=== PATIENT | male | born 1945 | race Caucasian/White ===

== ENCOUNTER 2020-08-06 12:24 | Emergency (ER) | payer MEDICARE, BC ==
[~2020-08-06] VITALS: Ht 172.7 cm; Wt 79.5 kg
[~2020-08-06 12:24] MED LIST: AMLO2.5T2 PO; ARIP5TAB60 PO; ASPI81TA52 PO; ATOR20TA PO; CITA40TA11 PO; FLO0.4C PO; INSU200I4 SQ; KEP500T PO; LISI1TAB29 PO; MAGN250T11 PO; MULT-25 PO; OMEP40CA13 PO; TRAZ-251 PO; thiamine tablet PO
[2020-08-06 13:03] LABS: BASOPHILS # (AUTO) 0.1 X10'3 (0-0.2); EOSINOPHILS # (AUTO) 0.2 X10'3 (0-0.9); HEMATOCRIT 46.1 % (42.0-52.0); HEMOGLOBIN 15.1 g/dl (14.0-17.9); LYMPHOCYTES # (AUTO) 0.8 X10'3 (1.1-4.8); MEAN CORPUSCULAR HEMOGLOBIN 26.1 PG (27.0-31.0); MEAN CORPUSCULAR HGB CONC 32.8 g/dL (33.0-36.5); MEAN CORPUSCULAR VOLUME 79.4 FL (78-98); MEAN PLATELET VOLUME 9.5 FL (7.4-10.4); MONOCYTES # (AUTO) 0.6 X10'3 (0-0.9); MONOCYTES % (AUTO) 10.5 % (2-12); NEUTROPHILS % (AUTO) 71.5 % (42-75); PLATELET COUNT 192 X10'3 (140-440); RED CELL DISTRIBUTION WIDTH 19.7 % (11.5-14.5); WHITE BLOOD COUNT 5.6 X10'3 (4.5-11.0)
[2020-08-06 13:27] LABS: ALANINE AMINOTRANSFERASE 18 U/L (12-78); ALBUMIN 4.2 G/DL (3.4-5.0); ALBUMIN/GLOBULIN RATIO 1.2 (1.1-1.5); ALKALINE PHOSPHATASE 85 IU/L (46-116); ANION GAP 14 (8-16); ASPARTATE AMINO TRANSFERASE 15 U/L (10-37); BILIRUBIN,TOTAL 0.9 MG/DL (0.1-1.0); BLOOD UREA NITROGEN 14 MG/DL (7-18); BUN/CREATININE RATIO 9.1 (5.4-32.0); CALCIUM 9.3 MG/DL (8.5-10.1); CHLORIDE 100 MMOL/L (99-107); CREATININE 1.54 MG/DL (0.60-1.10); ETHANOL < 0.010 GM/DL (0.0-0.010); GLUCOSE 129 MG/DL (70-104); SODIUM 142 MMOL/L (135-145); TOTAL CARBON DIOXIDE 27.6 MMOL/L (24-32); TOTAL PROTEIN 7.8 G/DL (6.4-8.2); eGFR 45 ML/MIN
[2020-08-06 13:28] LABS: CLARITY,URINE CLEAR (Clear); COLOR,URINE YELLOW (Yellow); GLUCOSE, URINE NEGATIVE (Neg); KETONES,URINE NEGATIVE (Neg); LEUKOCYTE ESTERASE ,URINE NEGATIVE (Neg); NITRITES, URINE NEGATIVE (Neg); OCCULT BLOOD,URINE NEGATIVE (Neg); PROTEIN,URINE 30 mg/dl (Neg)
[2020-08-06 13:29] LABS: POTASSIUM 2.7 MMOL/L (3.5-5.1)
[2020-08-06 13:35] LABS: UA COLLECTION TYPE VOIDED
[2020-08-06] MEDS: LORazepam 1 MG tablet PO PRN (13:35)
[2020-08-06 13:36] LABS: BACTERIA,URINE FEW /HPF (Neg); MUCUS STRANDS MODERATE /LPF (Neg); SQUAMOUS EPITHELIAL CELL,UR NONE SEEN /LPF (FEW); WBC,URINE 0-4 /HPF (0-4)
[2020-08-06 13:37] LABS: FINE GRANULAR CAST 0-3 /LPF (NEGATIVE); RBC,URINE 0-2 /HPF (0-2); RENAL CELLS, URINE FEW /HPF
[2020-08-06] MEDS ORDERED: potassium Cl 20 mEq SR tablet PO STA (13:46)
[2020-08-06 14:10] LABS: URINE AMPHETAMINE SCREEN NEGATIVE (Neg); URINE BARBITUATE SCREEN NEGATIVE (Neg); URINE BENZODIAZEPINES SCREEN NEGATIVE (Neg); URINE CANNABINOID SCREEN POSITIVE (Neg); URINE COCAINE SCREEN NEGATIVE (Neg); URINE METHADONE SCREEN NEGATIVE (Neg); URINE OPIATE SCREEN NEGATIVE (Neg); URINE PHENCYCLIDINE SCREEN NEGATIVE (Neg)
--- NOTE | 2020-08-06 15:40 | NUR ---
PACKET FAXED TO [facility]
[2020-08-06 18:22] LABS: ACETAMINOPHEN < 2.0 UG/ML (10-30)
--- NOTE | 2020-08-06 19:11 | NUR ---
One to one with the patient to update him on the plan of care for harper. Lab is at the bedside to repeat his K level. He stated that he has been having suicidal thoughts for quite some time. He stated that he has been feeling depressed. He also stated, "I can't even enjoy anything. I can't enjoy life" He denies auditory hallucinatons.
[2020-08-06] MEDS ORDERED: potassium chloride 10mEq ER tablet PO ONE (19:50)
[2020-08-06] MEDS ORDERED: LISI20TA28 PO (19:59)
[2020-08-06] MEDS ORDERED: FERR-29 PO (20:00)
[2020-08-06] MEDS: tamsulosin 0.4mg capsule PO SCH (20:36)
[2020-08-06] MEDS: amLODIPine 5mg tablet PO SCH (20:37)
[2020-08-06] MEDS: atorvastatin 20mg tablet PO SCH (20:38)
[2020-08-06] MEDS: citalopram 20mg tablet PO SCH (20:38)
[2020-08-06] MEDS: insulin glargine (Lantus) pen - multi-dose SQ SCH (20:40)
--- NOTE | 2020-08-06 22:37 | NUR ---
The patient's HS accucheck was only 101 despite eating dinner. Discussed with pc technician and Dominique walton for harper. The patient has not been checking his BS at home.
--- NOTE | 2020-08-06 23:01 | NUR ---
The patient appears to be sleeping
--- NOTE | 2020-08-07 00:42 | NUR ---
The patient appears to be sleeping
--- NOTE | 2020-08-07 01:47 | NUR ---
The patient up to use the bathroom
--- NOTE | 2020-08-07 03:50 | NUR ---
The patient appears to be sleeping
--- NOTE | 2020-08-07 06:35 | NUR ---
pt is asleep, eyes closed, regular breathing observed, no needs at this time
--- NOTE | 2020-08-07 07:00 | NUR ---
pt up and ambulating to the bathroom, no needs at this time
--- NOTE | 2020-08-07 07:46 | NUR ---
pt is asleep, no needs at this time
[2020-08-07] MEDS: multivitamins, therapeutics tablet PO SCH (08:09)
[2020-08-07] MEDS: aspirin 81mg tablet.DR PO SCH (08:09)
[2020-08-07] MEDS: ferrous sulfate 325mg tablet PO SCH (08:09)
[2020-08-07] MEDS: pantoprazole 40mg Tablet.DR PO SCH ×2 (08:09→20:24)
[2020-08-07] MEDS: lisinopril 20mg tablet PO SCH (08:10)
--- NOTE | 2020-08-07 08:39 | NUR ---
pt taak medications and ate breakfast, he is calm, no needs at this time
--- NOTE | 2020-08-07 09:20 | NUR ---
pt accepting of blood draw, calm, no needs at this time
--- NOTE | 2020-08-07 09:41 | NUR ---
pt is back to sleep, regular breathing observed
--- NOTE | 2020-08-07 10:42 | NUR ---
pt is sleeping, regular breathing present, no needs at this time
[2020-08-07] MEDS ORDERED: bisacodyl 5mg tablet.DR PO PRN (10:55)
--- NOTE | 2020-08-07 11:44 | NUR ---
pt is supine in bed, no needs at this time
--- NOTE | 2020-08-07 13:17 | NUR ---
pt is eating his lunch, no needs at this time
--- NOTE | 2020-08-07 13:26 | NUR ---
pt was up at the nurses station, wanting to know status, he is saying that he is a burden to his daughter, has no purpose, no hellen, doesn't think he can be fixed
[2020-08-07] MEDS: LORazepam 1 MG tablet PO PRN (13:32)
[2020-08-07] MEDS ORDERED: LORazepam 2 mg/ml vial IV ONE (13:50)
[2020-08-07] MEDS ORDERED: phenobarbital inj 260 MG in normal saline 100ml IV soln 98 ML IV ONE (13:50)
[2020-08-07] MEDS ORDERED: normal saline 1000ML IV soln IVB ONE (14:00)
--- NOTE | 2020-08-07 14:45 | NUR ---
called and spoke to Stephanie, pt daughter, updated her on pt, let her know that he is back in the main ED and that he had a possible seizure
--- NOTE | 2020-08-07 17:09 | NUR ---
Patient up to bathroom at this time. Gait steady, no signs of distress noted. Ambulated independently back to bed safely.
--- NOTE | 2020-08-07 20:09 | NUR ---
pt to room, assumed care. pt AAO4. food tray given. water given. pt calm and coorpertive.
[2020-08-07] MEDS: atorvastatin 20mg tablet PO SCH (20:24)
[2020-08-07] MEDS: citalopram 20mg tablet PO SCH (20:24)
[2020-08-07] MEDS: amLODIPine 5mg tablet PO SCH (20:24)
[2020-08-07] MEDS: tamsulosin 0.4mg capsule PO SCH (20:24)
--- NOTE | 2020-08-07 20:28 | NUR ---
pt did not eat any dinner. states, its too cold. offered turkey sandwich and pt refused.
[2020-08-07] MEDS: insulin glargine (Lantus) pen - multi-dose SQ SCH (20:29)
--- NOTE | 2020-08-07 21:20 | NUR ---
pt resting in bed comfortably. denies needs.
--- NOTE | 2020-08-07 22:53 | NUR ---
pt appears asleep in bed, even chest rise and fall.
--- NOTE | 2020-08-08 03:17 | NUR ---
report given to RN, care transferred
--- NOTE | 2020-08-08 03:19 | NUR ---
ASSUMED CARE OF PT FROM ARIA SMITH. PT SLEEPING IN BED WITH EVEN UNLABORED RESPIRATIONS. PT IN NO SIGN OF DISTRESS AT THIS TIME. WILL CONTINUE TO REASSESS.
--- NOTE | 2020-08-08 04:27 | NUR ---
PT STOOD TO URINATE AND NOW IS SAFELY BACK IN BED RESTING ON RIGHT SIDE WITH EVEN UNLABORED RESPIRATIONS AND NO SIGNS OF DISTRESS.
--- NOTE | 2020-08-08 11:36 | NUR ---
pt brought from room 16 in the main ER to room 23 in overflow by tech with no incident
[2020-08-08 11:45] VITALS: BP_DIAS 67
[2020-08-08] MEDS: pantoprazole 40mg Tablet.DR PO SCH (11:48)
[2020-08-08] MEDS: aspirin 81mg tablet.DR PO SCH (11:48)
[2020-08-08 11:49] VITALS: BP_SYST 130
[2020-08-08] MEDS: ferrous sulfate 325mg tablet PO SCH (11:49)
[2020-08-08] MEDS: multivitamins, therapeutics tablet PO SCH (11:49)
[2020-08-08] MEDS: lisinopril 20mg tablet PO SCH (11:49)
[2020-08-08] MEDS: LORazepam 1 MG tablet PO PRN (11:50)
[2020-08-09] MEDS ORDERED: LISI1TAB29 PO (10:43)
== END 2020-08-08 13:05 | disposition home or self-care (01) ==
LOC: ER 12:25
DX: F32.9 Major depressive disorder, single episode, unspecified (principal); Z20.822 Contact with and (suspected) exposure to COVID-19
CPT/HCPCS: 36415; 80053; 80305; 80320; 80329; 81001; 82948; 84132; 84443; 85025; 87635; 93005; 96365; 96375; 99285; C9803; J2060; J2560; J7030; J1815

== ENCOUNTER 2022-06-24 18:46 | Inpatient (IN) | payer MEDICARE, BC ==
[~2022-06-24] VITALS: Ht 162.6 cm; Wt 82.8 kg
[~2022-06-24 18:46] MED LIST changes: -AMLO2.5T2 PO; +AMLO5TAB PO; -ARIP5TAB60 PO; +ATI1T PO; -CITA40TA11 PO; +FERR-29 PO; -KEP500T PO; -LISI1TAB29 PO; +LISI1TAB53 PO; -MAGN250T11 PO; -OMEP40CA13 PO; +OMEP40CA21 PO; +QUET50TA24 PO; +SERT-434 PO; -TRAZ-251 PO; -thiamine tablet PO
[2022-06-24 19:11] LABS: BASOPHILS % (AUTO) 0.2 % (0-1); EOSINOPHILS % (AUTO) 0 % (0-6); HEMATOCRIT 47.4 % (42.0-52.0); HEMOGLOBIN 16.1 g/dl (14.0-17.9); LYMPHOCYTES # (AUTO) 0.4 X10'3 (1.1-4.8); LYMPHOCYTES % (AUTO) 2.4 % (21-51); MEAN CORPUSCULAR HEMOGLOBIN 28.5 PG (27.0-31.0); MEAN PLATELET VOLUME 8.9 FL (7.4-10.4); MONOCYTES # (AUTO) 0.9 X10'3 (0-0.9); MONOCYTES % (AUTO) 5.7 % (2-12); NEUTROPHILS # (AUTO) 13.9 X10'3 (1.8-7.7); NEUTROPHILS % (AUTO) 91.7 % (42-75); PLATELET COUNT 182 X10'3 (140-440); RED BLOOD COUNT 5.64 X10'6 (4.70-6.10); RED CELL DISTRIBUTION WIDTH 13.5 % (11.5-14.5); WHITE BLOOD COUNT 15.2 X10'3 (4.5-11.0)
[2022-06-24 19:25] LABS: ALANINE AMINOTRANSFERASE 22 U/L (12-78); ALBUMIN 4.6 G/DL (3.4-5.0); ALBUMIN/GLOBULIN RATIO 1.2 (1.1-1.5); ALKALINE PHOSPHATASE 82 IU/L (46-116); ANION GAP 23 (8-16); ASPARTATE AMINO TRANSFERASE 22 U/L (10-37); BILIRUBIN,TOTAL 0.8 MG/DL (0.1-1.0); BLOOD UREA NITROGEN 18 MG/DL (7-18); BUN/CREATININE RATIO 12.3 (10.0-20.0); CALCIUM 9.5 MG/DL (8.5-10.1); CHLORIDE 100 MMOL/L (99-107); CREATININE 1.46 MG/DL (0.60-1.10); GLUCOSE 200 MG/DL (70-104); SODIUM 142 MMOL/L (135-145); TOTAL CARBON DIOXIDE 19.5 MMOL/L (24-32); TOTAL PROTEIN 8.3 G/DL (6.4-8.2); eGFR 47 ML/MIN
[2022-06-24 19:27] LABS: POTASSIUM 2.8 MMOL/L (3.5-5.1)
[2022-06-24] MEDS: magnesium 2GM in 50ml NS 50 ML IV SCH ×2 (19:35→20:35)
[2022-06-24] MEDS: potassium Cl 40MEQ/1/2NS 520ml 520 ML IV SCH (20:00)
--- NOTE | 2022-06-24 20:24 | NUR ---
ATTEMPT EKG, PT COMBATIVE WITH STAFF. UNABLE TO GET EKG. WILL ATTEMPT AGAIN AT LATER TIME. MADE AWARE.
[2022-06-24] MEDS ORDERED: LORazepam 2 mg/ml vial IV ONE (21:00)
[2022-06-24] MEDS ORDERED: CefTRIAXone 2gm/D5W 50ml BAG 50 ML IV ONE (21:05)
[2022-06-24] MEDS ORDERED: normal saline 1000ML IV soln IVB ONE ×2 (21:40→23:35)
[2022-06-24] MEDS ORDERED: magnesium Cl slow-release 64mg tablet PO PRN (22:10)
[2022-06-24] MEDS: potassium Cl 20mEq in NS 1,000 ML IV SCH (22:10)
[2022-06-24] MEDS ORDERED: ondansetron/PF 4mg/2ml inj IV PRN (22:10)
[2022-06-24] MEDS ORDERED: potassium Cl 40MEQ/1/2NS 520ml 520 ML IV PRN (22:10)
[2022-06-24] MEDS ORDERED: potassium Cl 20 mEq SR tablet PO PRN ×2 (22:10)
[2022-06-24] MEDS ORDERED: magnesium 2GM in 50ml NS 50 ML IV PRN (22:10)
[2022-06-24] MEDS ORDERED: acetaminophen 325mg tablet PO PRN (22:10)
[2022-06-24] MEDS ORDERED: magnesium 4gm in 100ml NS 100 ML IV PRN (22:10)
[2022-06-24] MEDS ORDERED: magnesium hydroxide 30ml (MOM) UD suspension PO PRN (22:10)
[2022-06-24] MEDS ORDERED: mag hydrox/Alum hydrox/simeth 30ml oral suspension PO PRN (22:10)
[2022-06-24] MEDS ORDERED: dextrose 50%-water 50ml dispensing syringe IV PRN ×2 (22:15)
[2022-06-24] MEDS ORDERED: MESSAGE TO PHARMACY PO ONE (22:15)
[2022-06-24] MEDS ORDERED: glucagon, human recombinant 1mg kit SUBCUT PRN (22:15)
[2022-06-24] MEDS ORDERED: DEXTROSE 15 GM of carb/4 tabs (each vial/BOTTLE has 4 tablets) PO PRN ×2 (22:15)
[2022-06-24] MEDS ORDERED: insulin Lispro (HumaLOG) vial - multi-dose SQ SCH (22:15)
--- NOTE | 2022-06-24 22:40 | NUR ---
ATTEMPT EKG AGAIN, EVEN WITH PT IN SOFT RESTRAINTS UNABLE TO OBTAIN EKG, PER PT MOVING. WILL ATTEMPT AGAIN.
[2022-06-24] MEDS ORDERED: LORazepam 2 mg/ml vial IV PRN (23:00)
--- NOTE | 2022-06-24 23:19 | NUR ---
Patient resistant to care and combative. Pt grabbing at items within reach and staff. Pt is non verbal and resistant to verbal reorientation. Pt placed in soft non-behavioral restraints B/L wrists. MD notified. New orders for Ativan 1 mg Q4h prn as needed for agitation.
[2022-06-25] MEDS: potassium Cl 40MEQ/1/2NS 520ml 520 ML IV SCH
--- NOTE | 2022-06-25 | NUR ---
Pt resting comfortably. Soft restraints removed. Pt is calm when left alone.
[2022-06-25 01:31] LABS: CLARITY,URINE CLOUDY (Clear); COLOR,URINE YELLOW (Yellow); GLUCOSE, URINE NEGATIVE (Neg); KETONES,URINE 15 mg/dl (Neg); LEUKOCYTE ESTERASE ,URINE NEGATIVE (Neg); NITRITES, URINE NEGATIVE (Neg); OCCULT BLOOD,URINE MODERATE (Neg); PROTEIN,URINE NEGATIVE (Neg); UROBILINOGEN,URINE 0.2 E.U/dL (0.2-1.0)
[2022-06-25 01:44] LABS: UA COLLECTION TYPE STRAIGHT CATH
[2022-06-25 01:48] LABS: WBC,URINE 0-4 /HPF (0-4)
[2022-06-25 01:49] LABS: BACTERIA,URINE NONE SEEN /HPF (Neg); MUCUS STRANDS NONE SEEN /LPF (Neg); SQUAMOUS EPITHELIAL CELL,UR FEW /LPF (FEW)
[2022-06-25 01:50] LABS: AMORPHOUS URATES 2+; URIC ACID CRYSTALS 2+ /HPF (NEGATIVE)
[2022-06-25 03:52] LABS: BASOPHILS # (AUTO) 0.1 X10'3 (0-0.2); BASOPHILS % (AUTO) 0.4 % (0-1); EOSINOPHILS % (AUTO) 0 % (0-6); HEMATOCRIT 42.6 % (42.0-52.0); HEMOGLOBIN 14.5 g/dl (14.0-17.9); LYMPHOCYTES # (AUTO) 0.5 X10'3 (1.1-4.8); LYMPHOCYTES % (AUTO) 4.1 % (21-51); MEAN CORPUSCULAR HEMOGLOBIN 28.6 PG (27.0-31.0); MEAN CORPUSCULAR VOLUME 84.1 FL (78-98); MEAN PLATELET VOLUME 9.2 FL (7.4-10.4); MONOCYTES # (AUTO) 0.9 X10'3 (0-0.9); MONOCYTES % (AUTO) 7.1 % (2-12); NEUTROPHILS # (AUTO) 11.3 X10'3 (1.8-7.7); NEUTROPHILS % (AUTO) 88.4 % (42-75); PLATELET COUNT 168 X10'3 (140-440); RED BLOOD COUNT 5.06 X10'6 (4.70-6.10); RED CELL DISTRIBUTION WIDTH 13.7 % (11.5-14.5); WHITE BLOOD COUNT 12.8 X10'3 (4.5-11.0)
[2022-06-25 04:07] LABS: ALANINE AMINOTRANSFERASE 20 U/L (12-78); ALBUMIN/GLOBULIN RATIO 1.2 (1.1-1.5); ALKALINE PHOSPHATASE 69 IU/L (46-116); ANION GAP 12 (8-16); ASPARTATE AMINO TRANSFERASE 26 U/L (10-37); BILIRUBIN,TOTAL 0.6 MG/DL (0.1-1.0); BLOOD UREA NITROGEN 16 MG/DL (7-18); BUN/CREATININE RATIO 14.4 (10.0-20.0); CALCIUM 8.5 MG/DL (8.5-10.1); CHLORIDE 106 MMOL/L (99-107); CREATININE 1.11 MG/DL (0.60-1.10); GLUCOSE 178 MG/DL (70-104); MAGNESIUM 3.7 MG/DL (1.5-2.4); POTASSIUM 3.4 MMOL/L (3.5-5.1); SODIUM 142 MMOL/L (135-145); TOTAL PROTEIN 7.3 G/DL (6.4-8.2); eGFR 65 ML/MIN
--- NOTE | 2022-06-25 05:00 | NUR ---
Patient out of bed and confused. Pt reoriented, and followed directions to climb back into bed. Pt is improving, oriented to person, but still confused.
[2022-06-25] MEDS: K and/or MAG REPLACEMENT MC SCH ×2 (08:00→20:00)
[2022-06-25] MEDS: docusate sod 100mg capsule PO SCH ×2 (08:00→20:58)
[2022-06-25] MEDS: CefTRIAXone/D5W-Rocephin 1gm 50 ML IV SCH (08:18)
[2022-06-25] MEDS: heparin, porcine 5000 units/ml vial SQ SCH ×2 (08:20→20:58)
[2022-06-25] MEDS: potassium Cl 20mEq in NS 1,000 ML IV SCH ×3 (09:27→22:01)
[2022-06-25 10:17] LABS: HEMOGLOBIN A1C 6.6 % (4.5-6.2)
[2022-06-25 13:51] LABS: CHOL/HDL RATIO 2.3 (0.00-4.99); CHOLESTEROL 119 MG/DL (0-200); HDL CHOLESTEROL 51 MG/DL (35-60); LDL CHOLESTEROL 54 MG/DL (50-100); TRIGLYCERIDES 80 MG/DL (20-135)
--- NOTE | 2022-06-25 21:00 | NUR ---
PT. PLACED ON HOSPITAL BED FOR COMFORT WHILE AWAITING INPT. ROOM ASSIGNMENT
[2022-06-26 03:08] VITALS: BP 128/63
[2022-06-26 07:33] LABS: RED CELL DISTRIBUTION WIDTH 14.3 % (11.5-14.5)
[2022-06-26 07:35] LABS: BASOPHILS % (AUTO) 0.3 % (0-1); EOSINOPHILS % (AUTO) 0.3 % (0-6); HEMATOCRIT 37.1 % (42.0-52.0); HEMOGLOBIN 12.4 g/dl (14.0-17.9); LYMPHOCYTES # (AUTO) 0.7 X10'3 (1.1-4.8); LYMPHOCYTES % (AUTO) 9.4 % (21-51); MEAN CORPUSCULAR HEMOGLOBIN 28.3 PG (27.0-31.0); MEAN CORPUSCULAR HGB CONC 33.5 g/dL (33.0-36.5); MEAN CORPUSCULAR VOLUME 84.6 FL (78-98); MEAN PLATELET VOLUME 9.2 FL (7.4-10.4); MONOCYTES # (AUTO) 0.6 X10'3 (0-0.9); MONOCYTES % (AUTO) 8.6 % (2-12); NEUTROPHILS % (AUTO) 81.4 % (42-75); PLATELET COUNT 137 X10'3 (140-440); RED BLOOD COUNT 4.39 X10'6 (4.70-6.10); WHITE BLOOD COUNT 7.4 X10'3 (4.5-11.0)
[2022-06-26 07:40] VITALS: BP 115/81
[2022-06-26 07:46] LABS: ALANINE AMINOTRANSFERASE 19 U/L (12-78); ALBUMIN 3.3 G/DL (3.4-5.0); ALBUMIN/GLOBULIN RATIO 1.2 (1.1-1.5); ALKALINE PHOSPHATASE 55 IU/L (46-116); ANION GAP 8 (8-16); ASPARTATE AMINO TRANSFERASE 28 U/L (10-37); BILIRUBIN,TOTAL 0.7 MG/DL (0.1-1.0); BLOOD UREA NITROGEN 15 MG/DL (7-18); BUN/CREATININE RATIO 17.4 (10.0-20.0); CALCIUM 7.7 MG/DL (8.5-10.1); CHLORIDE 110 MMOL/L (99-107); CREATININE 0.86 MG/DL (0.60-1.10); GLUCOSE 167 MG/DL (70-104); MAGNESIUM 2.4 MG/DL (1.5-2.4); PHOSPHORUS 2.3 MG/DL (2.3-4.5); POTASSIUM 3.2 MMOL/L (3.5-5.1); SODIUM 144 MMOL/L (135-145); TOTAL CARBON DIOXIDE 26.3 MMOL/L (24-32); eGFR 87 ML/MIN
[2022-06-26] MEDS: CefTRIAXone/D5W-Rocephin 1gm 50 ML IV SCH (07:47)
[2022-06-26] MEDS: docusate sod 100mg capsule PO SCH ×2 (07:47→20:00)
[2022-06-26] MEDS: heparin, porcine 5000 units/ml vial SQ SCH ×2 (07:49→20:02)
[2022-06-26] MEDS: K and/or MAG REPLACEMENT MC SCH ×2 (08:13→20:00)
[2022-06-26] MEDS: potassium Cl 20mEq in NS 1,000 ML IV SCH ×2 (08:13→23:18)
[2022-06-26] MEDS ORDERED: AMLO5TAB PO (10:35)
[2022-06-26] MEDS ORDERED: CARB1DRO42 OP (10:35)
[2022-06-26] MEDS ORDERED: METF-900 PO (10:35)
[2022-06-26] MEDS ORDERED: LORA-269 PO (10:35)
[2022-06-26] MEDS ORDERED: QUET50TA PO (10:35)
[2022-06-26] MEDS ORDERED: ATOR20TA66 PO (10:35)
[2022-06-26] MEDS ORDERED: LISI1TAB53 PO (10:35)
[2022-06-26] MEDS ORDERED: FLO0.4C PO (10:35)
[2022-06-26] MEDS ORDERED: OMEP20CA15 PO (10:35)
[2022-06-26] MEDS ORDERED: SERT-433 PO (10:35)
[2022-06-26 11:00] VITALS: BP 138/72
[2022-06-26] MEDS ORDERED: PERFLUTREN PROTEIN-A MICROSPHR (Optison) 0.22 MG/ML 3ML VIAL IV ONE (11:50)
[2022-06-26 15:00] VITALS: BP 137/63
[2022-06-26] MEDS ORDERED: GADOTERATE MEGLUMINE 7.5 MMOL/15 ML VIAL IV ONE (15:39)
[2022-06-26] MEDS ORDERED: LORazepam 1 MG tablet PO PRN (17:00)
[2022-06-26] MEDS ORDERED: polyvinyl alcohol ophthalmic drops 15ml bottle EACHEYE PRN (17:00)
[2022-06-26] MEDS: vancomycin/NS 1 GM ADD-VANTAGE 250 ML IV SCH (17:30)
[2022-06-26] MEDS: sertraline 50mg tablet PO SCH (17:30)
[2022-06-26] MEDS: tamsulosin 0.4mg capsule PO SCH (17:30)
[2022-06-26 18:00] VITALS: BP 137/63
--- NOTE | 2022-06-26 18:38 | NUR ---
Problems reprioritized. Patient report given, questions answered & plan of care reviewed with Hallie RN, patient stable at transfer of care.
[2022-06-26] MEDS: QUEtiapine 25mg tablet PO SCH (20:00)
[2022-06-26 23:00] VITALS: BP 145/78
[2022-06-27 03:00] VITALS: BP 148/74
[2022-06-27] MEDS: vancomycin/NS 1 GM ADD-VANTAGE 250 ML IV SCH ×2 (04:53→17:00)
--- NOTE | 2022-06-27 06:20 | NUR ---
Patient in room PCU 3026. I have received report from ARIA Selby and had the opportunity to ask questions and assume patient care.
--- NOTE | 2022-06-27 06:36 | NUR ---
Problems reprioritized. Patient report given, questions answered & plan of care reviewed with Gladis KNAPP and Mechelle KNAPP.
[2022-06-27 06:45] LABS: BASOPHILS # (AUTO) 0.1 X10'3 (0-0.2); EOSINOPHILS # (AUTO) 0.1 X10'3 (0-0.9); EOSINOPHILS % (AUTO) 1.8 % (0-6); HEMATOCRIT 37.1 % (42.0-52.0); HEMOGLOBIN 12.5 g/dl (14.0-17.9); LYMPHOCYTES # (AUTO) 0.5 X10'3 (1.1-4.8); LYMPHOCYTES % (AUTO) 10.4 % (21-51); MEAN CORPUSCULAR HEMOGLOBIN 28.7 PG (27.0-31.0); MEAN CORPUSCULAR HGB CONC 33.7 g/dL (33.0-36.5); MEAN CORPUSCULAR VOLUME 85.3 FL (78-98); MEAN PLATELET VOLUME 9.1 FL (7.4-10.4); MONOCYTES # (AUTO) 0.6 X10'3 (0-0.9); MONOCYTES % (AUTO) 12.1 % (2-12); NEUTROPHILS # (AUTO) 3.4 X10'3 (1.8-7.7); NEUTROPHILS % (AUTO) 73.7 % (42-75); PLATELET COUNT 137 X10'3 (140-440); RED BLOOD COUNT 4.35 X10'6 (4.70-6.10); RED CELL DISTRIBUTION WIDTH 13.9 % (11.5-14.5); WHITE BLOOD COUNT 4.6 X10'3 (4.5-11.0)
[2022-06-27 07:00] VITALS: BP 148/74
[2022-06-27 07:08] LABS: ALANINE AMINOTRANSFERASE 28 U/L (12-78); ALBUMIN 3.2 G/DL (3.4-5.0); ALBUMIN/GLOBULIN RATIO 1.1 (1.1-1.5); ALKALINE PHOSPHATASE 51 IU/L (46-116); ANION GAP 6 (8-16); ASPARTATE AMINO TRANSFERASE 28 U/L (10-37); BILIRUBIN,TOTAL 0.6 MG/DL (0.1-1.0); BLOOD UREA NITROGEN 9 MG/DL (7-18); BUN/CREATININE RATIO 12.7 (10.0-20.0); CALCIUM 7.9 MG/DL (8.5-10.1); CHLORIDE 113 MMOL/L (99-107); CREATININE 0.71 MG/DL (0.60-1.10); GLUCOSE 132 MG/DL (70-104); PHOSPHORUS 1.9 MG/DL (2.3-4.5); POTASSIUM 3.6 MMOL/L (3.5-5.1); SODIUM 146 MMOL/L (135-145); TOTAL CARBON DIOXIDE 27.3 MMOL/L (24-32); eGFR > 90 ML/MIN
[2022-06-27] MEDS: docusate sod 100mg capsule PO SCH ×2 (08:00→20:37)
[2022-06-27] MEDS: lisinopril 20mg tablet PO SCH (08:00)
[2022-06-27] MEDS: K and/or MAG REPLACEMENT MC SCH ×2 (08:00→20:00)
[2022-06-27] MEDS: pantoprazole 40mg Tablet.DR PO SCH (08:00)
[2022-06-27] MEDS: HYDROchlorothiazide 25mg tablet PO SCH (08:53)
[2022-06-27] MEDS: sertraline 50mg tablet PO SCH (08:53)
[2022-06-27] MEDS: atorvastatin 20mg tablet PO SCH (08:53)
[2022-06-27] MEDS: tamsulosin 0.4mg capsule PO SCH (08:54)
[2022-06-27] MEDS: amLODIPine 5mg tablet PO SCH (08:55)
[2022-06-27] MEDS: heparin, porcine 5000 units/ml vial SQ SCH ×2 (08:56→20:39)
[2022-06-27] MEDS: CefTRIAXone/D5W-Rocephin 1gm 50 ML IV SCH (08:58)
[2022-06-27 11:57] VITALS: BP 139/71
[2022-06-27] MEDS: potassium Cl 20mEq in NS 1,000 ML IV SCH ×2 (12:45→20:10)
[2022-06-27 15:51] VITALS: BP 144/70
--- NOTE | 2022-06-27 18:15 | NUR ---
Problems reprioritized. Patient report given, questions answered & plan of care reviewed with Bal KNAPP. Pt stable at shift change.
[2022-06-27] MEDS: QUEtiapine 25mg tablet PO SCH (20:38)
[2022-06-27 23:00] VITALS: BP 103/71
[2022-06-28 03:00] VITALS: BP 151/78
[2022-06-28] MEDS ORDERED: VANCOMYCIN LEVEL IV ONE (04:30)
[2022-06-28 04:56] LABS: BASOPHILS # (AUTO) 0.1 X10'3 (0-0.2); EOSINOPHILS # (AUTO) 0.1 X10'3 (0-0.9); MEAN PLATELET VOLUME 8.9 FL (7.4-10.4); MONOCYTES # (AUTO) 0.5 X10'3 (0-0.9); PLATELET COUNT 148 X10'3 (140-440)
[2022-06-28] MEDS: vancomycin/NS 1 GM ADD-VANTAGE 250 ML IV SCH (04:56)
[2022-06-28 04:57] LABS: BASOPHILS % (AUTO) 2.6 % (0-1); EOSINOPHILS % (AUTO) 2.6 % (0-6); HEMATOCRIT 44.6 % (42.0-52.0); LYMPHOCYTES # (AUTO) 0.9 X10'3 (1.1-4.8); LYMPHOCYTES % (AUTO) 17.6 % (21-51); MEAN CORPUSCULAR HEMOGLOBIN 28.6 PG (27.0-31.0); MEAN CORPUSCULAR HGB CONC 33.6 g/dL (33.0-36.5); MEAN CORPUSCULAR VOLUME 85.2 FL (78-98); MONOCYTES % (AUTO) 9.7 % (2-12); NEUTROPHILS # (AUTO) 3.6 X10'3 (1.8-7.7); NEUTROPHILS % (AUTO) 67.5 % (42-75); RED BLOOD COUNT 5.23 X10'6 (4.70-6.10); RED CELL DISTRIBUTION WIDTH 14.3 % (11.5-14.5); WHITE BLOOD COUNT 5.3 X10'3 (4.5-11.0)
[2022-06-28 05:06] LABS: ALANINE AMINOTRANSFERASE 46 U/L (12-78); ALBUMIN 3.8 G/DL (3.4-5.0); ALBUMIN/GLOBULIN RATIO 1.2 (1.1-1.5); ALKALINE PHOSPHATASE 66 IU/L (46-116); ANION GAP 9 (8-16); ASPARTATE AMINO TRANSFERASE 27 U/L (10-37); BILIRUBIN,TOTAL 0.6 MG/DL (0.1-1.0); BLOOD UREA NITROGEN 10 MG/DL (7-18); BUN/CREATININE RATIO 12.5 (10.0-20.0); CHLORIDE 108 MMOL/L (99-107); GLUCOSE 135 MG/DL (70-104); MAGNESIUM 2.1 MG/DL (1.5-2.4); PHOSPHORUS 3.3 MG/DL (2.3-4.5); POTASSIUM 3.4 MMOL/L (3.5-5.1); SODIUM 144 MMOL/L (135-145); TOTAL CARBON DIOXIDE 27.5 MMOL/L (24-32); TOTAL PROTEIN 7.1 G/DL (6.4-8.2); VANCOMYCIN,TROUGH 8.7 UG/ML (6.0-14.0); eGFR > 90 ML/MIN
--- NOTE | 2022-06-28 06:15 | NUR ---
Patient in room PCU 3026. I have received report from Bal KNAPP and had the opportunity to ask questions and assume patient care.
--- NOTE | 2022-06-28 06:36 | NUR ---
Problems reprioritized. Patient report given, questions answered & plan of care reviewed with Mechelle KNAPP and Gladis KNAPP.
[2022-06-28 07:00] VITALS: BP 155/72
[2022-06-28] MEDS: heparin, porcine 5000 units/ml vial SQ SCH ×2 (08:00→20:06)
[2022-06-28] MEDS: K and/or MAG REPLACEMENT MC SCH ×2 (08:00→20:00)
[2022-06-28] MEDS: atorvastatin 20mg tablet PO SCH (08:17)
[2022-06-28] MEDS: pantoprazole 40mg Tablet.DR PO SCH (08:17)
[2022-06-28] MEDS: lisinopril 20mg tablet PO SCH (08:18)
[2022-06-28] MEDS: tamsulosin 0.4mg capsule PO SCH (08:18)
[2022-06-28] MEDS: HYDROchlorothiazide 25mg tablet PO SCH (08:19)
[2022-06-28] MEDS: amLODIPine 5mg tablet PO SCH (08:19)
[2022-06-28] MEDS: docusate sod 100mg capsule PO SCH ×2 (08:19→20:05)
[2022-06-28] MEDS: sertraline 50mg tablet PO SCH (08:19)
[2022-06-28] MEDS: CefTRIAXone/D5W-Rocephin 1gm 50 ML IV SCH (08:20)
[2022-06-28] MEDS: potassium Cl 20mEq in NS 1,000 ML IV SCH ×2 (08:34→20:06)
[2022-06-28 12:00] VITALS: BP 170/86
--- NOTE | 2022-06-28 12:26 | NUR ---
Initial: Pt admit for gravely disabled with acute encephalopathy, metabolic acidosis (resolved), and leukocytosis. Pt currently on a CHO controlled diet and eating well, documented with 100% PO intake of all meals with the exception of ~50% PO intake of first and most recent meal, overall averaging 86% PO intake since admit meeting estimated nutrient needs. No documented BM since admit, pt receiving routine bowel care with additional PRN bowel care available. D/w dietary to send power pudding with next meal to assist with bowel regularity. Will continue to follow and monitor need for further nutrition intervention. Recommendations: 1) Liberalize to regular diet if BG levels controlled, A1c 6.6% 2) Routine bowel care; utilize PRN bowel care 3) Scaled weight this admit; subsequent weekly scaled weights Addendum: 06/28/22 at [address] Amended: Links added.
[2022-06-28 12:37] LABS: GLUCOSE,CSF 97 MG/DL (40-75); TOTAL PROTEIN,CSF 96 MG/DL (30-60)
[2022-06-28 12:41] LABS: CSF SUPERNATANT COLOR COLORLESS
[2022-06-28 12:43] LABS: APPEARANCE,CSF CLOUDY; CSF RBC 5475 /CU MM (0); CSF VOLUME 9.5 ML; CSF WBC CT 4 /CU MM (0-5); TUBE# COUNTED 3
[2022-06-28] MEDS: VANCOmycin 1250MG/NS 250ml Bag 250 ML IV SCH (17:42)
[2022-06-28 18:00] VITALS: BP 149/72
--- NOTE | 2022-06-28 18:20 | NUR ---
Patient in room PCU 3026. I have received report from Gladis KNAPP and had the opportunity to ask questions and assume patient care.
--- NOTE | 2022-06-28 18:46 | NUR ---
Problems reprioritized. Patient report given, questions answered & plan of care reviewed with Amanda MORALES, patient stable at transfer of care..
[2022-06-28] MEDS: QUEtiapine 25mg tablet PO SCH (22:11)
[2022-06-29 02:00] VITALS: BP 94/56
[2022-06-29] MEDS: potassium Cl 20mEq in NS 1,000 ML IV SCH ×2 (02:10→05:16)
[2022-06-29] MEDS: VANCOmycin 1250MG/NS 250ml Bag 250 ML IV SCH (05:31)
[2022-06-29 06:00] VITALS: BP 125/74
--- NOTE | 2022-06-29 06:26 | NUR ---
Problems reprioritized. Patient report given, questions answered & plan of care reviewed with Dora KNAPP.
[2022-06-29] MEDS: CefTRIAXone/D5W-Rocephin 1gm 50 ML IV SCH (07:22)
[2022-06-29] MEDS: heparin, porcine 5000 units/ml vial SQ SCH (07:23)
[2022-06-29] MEDS: pantoprazole 40mg Tablet.DR PO SCH (07:23)
[2022-06-29] MEDS: amLODIPine 5mg tablet PO SCH (07:24)
[2022-06-29] MEDS: docusate sod 100mg capsule PO SCH (07:24)
[2022-06-29] MEDS: atorvastatin 20mg tablet PO SCH (07:25)
[2022-06-29] MEDS: HYDROchlorothiazide 25mg tablet PO SCH (07:25)
[2022-06-29] MEDS: sertraline 50mg tablet PO SCH (07:26)
[2022-06-29] MEDS: tamsulosin 0.4mg capsule PO SCH (07:26)
[2022-06-29] MEDS: lisinopril 20mg tablet PO SCH (07:27)
[2022-06-29 07:43] LABS: BASOPHILS # (AUTO) 0.1 X10'3 (0-0.2); BASOPHILS % (AUTO) 1.5 % (0-1); EOSINOPHILS # (AUTO) 0.1 X10'3 (0-0.9); EOSINOPHILS % (AUTO) 2.5 % (0-6); HEMATOCRIT 42.4 % (42.0-52.0); HEMOGLOBIN 14.2 g/dl (14.0-17.9); LYMPHOCYTES # (AUTO) 0.6 X10'3 (1.1-4.8); LYMPHOCYTES % (AUTO) 13.3 % (21-51); MEAN CORPUSCULAR HEMOGLOBIN 28.5 PG (27.0-31.0); MEAN CORPUSCULAR HGB CONC 33.6 g/dL (33.0-36.5); MEAN CORPUSCULAR VOLUME 84.9 FL (78-98); MEAN PLATELET VOLUME 8.8 FL (7.4-10.4); MONOCYTES # (AUTO) 0.5 X10'3 (0-0.9); MONOCYTES % (AUTO) 11.1 % (2-12); NEUTROPHILS # (AUTO) 3.4 X10'3 (1.8-7.7); NEUTROPHILS % (AUTO) 71.6 % (42-75); PLATELET COUNT 153 X10'3 (140-440); RED BLOOD COUNT 4.99 X10'6 (4.70-6.10); RED CELL DISTRIBUTION WIDTH 14.1 % (11.5-14.5); WHITE BLOOD COUNT 4.7 X10'3 (4.5-11.0)
[2022-06-29] MEDS: K and/or MAG REPLACEMENT MC SCH (08:00)
[2022-06-29 08:21] LABS: ALANINE AMINOTRANSFERASE 38 U/L (12-78); ALBUMIN 3.4 G/DL (3.4-5.0); ALBUMIN/GLOBULIN RATIO 1.1 (1.1-1.5); ALKALINE PHOSPHATASE 59 IU/L (46-116); ANION GAP 9 (8-16); ASPARTATE AMINO TRANSFERASE 19 U/L (10-37); BILIRUBIN,TOTAL 0.6 MG/DL (0.1-1.0); BLOOD UREA NITROGEN 11 MG/DL (7-18); BUN/CREATININE RATIO 13.9 (10.0-20.0); CALCIUM 8.4 MG/DL (8.5-10.1); CHLORIDE 109 MMOL/L (99-107); CREATININE 0.79 MG/DL (0.60-1.10); GLUCOSE 136 MG/DL (70-104); PHOSPHORUS 3.4 MG/DL (2.3-4.5); POTASSIUM 3.6 MMOL/L (3.5-5.1); SODIUM 144 MMOL/L (135-145); TOTAL CARBON DIOXIDE 26.1 MMOL/L (24-32); TOTAL PROTEIN 6.4 G/DL (6.4-8.2); eGFR > 90 ML/MIN
[2022-06-29 10:00] VITALS: BP 133/69
[2022-06-29] MEDS ORDERED: CIPR-202 PO (10:42)
--- NOTE | 2022-06-29 12:31 | NUR ---
Patient discharged in stable condition to home with family. iv removed tip intact no complications. Pt insisted on throwing away pants and socks that were soaked in urine. family and nurse witnessed pt throw away pants and pair of socks. Pt and family educated on discharge instructions/follow up.
--- NOTE | 2022-06-29 18:15 | NUR ---
i have reviewed student rn physical assessmement and agree with documented assessment.
[2022-06-30] MEDS ORDERED: VANCOMYCIN LEVEL IV ONE (04:30)
== END 2022-06-29 12:26 | disposition home or self-care (01) | DRG 70 ==
LOC: ER 18:46 → ED HOLD 22:12 → EDBEDREQSVC 22:52 → EDBEDREQ 22:52 → PCU 3S 06-26 02:30
PROVIDERS: ADMIT Internal Medicine; ATTEND Family Medicine
PROC: 4A00X4Z Measurement of Central Nervous Electrical Activity, External Approach (ICD-10-PCS; 2022-06-26)
PROC: 009U3ZZ Drainage of Spinal Canal, Percutaneous Approach (ICD-10-PCS; principal; 2022-06-28)
PROC: B01B1ZZ Fluoroscopy of Spinal Cord using Low Osmolar Contrast (ICD-10-PCS; 2022-06-28)
DX: G93.41 Metabolic encephalopathy (principal); N17.0 Acute kidney failure with tubular necrosis; E87.20 Acidosis, unspecified; R65.10 Systemic inflammatory response syndrome (SIRS) of non-infectious origin without acute organ dysfunction; Z20.822 Contact with and (suspected) exposure to COVID-19; F43.10 Post-traumatic stress disorder, unspecified; K21.9 Gastro-esophageal reflux disease without esophagitis; R62.7 Adult failure to thrive; F12.90 Cannabis use, unspecified, uncomplicated; Z60.2 Problems related to living alone; F41.9 Anxiety disorder, unspecified; R50.9 Fever, unspecified; D72.829 Elevated white blood cell count, unspecified; N40.0 Benign prostatic hyperplasia without lower urinary tract symptoms; F32.A Depression, unspecified; E11.9 Type 2 diabetes mellitus without complications; E78.00 Pure hypercholesterolemia, unspecified; E87.6 Hypokalemia; I10 Essential (primary) hypertension; Z68.31 Body mass index [BMI] 31.0-31.9, adult; Z91.018 Allergy to other foods; Z79.899 Other long term (current) drug therapy; Z79.82 Long term (current) use of aspirin; Z79.4 Long term (current) use of insulin
CPT/HCPCS: 36415; 62328; 70450; 70544; 70553; 71045; 71250; 74176; 77003; 80053; 80061; 80202; 81001; 82945; 82948; 83036; 83605; 83735; 84100; 84145; 84157; 84443; 85025; 87015; 87040; 87070; 87077; 87186; 87502; 87503; 87811; 89051; 93306; 93880; 95816; 96365; 96366; 96368; 96375; 97116; 97161; 97530; 99285; A4620; A6258; A6449; A9575; G0378; J0696; J1644; J1815; J2060; J3370; J3475; J3480; J7030; J7040

== ENCOUNTER 2024-03-21 12:37 | Emergency (ER) | payer BC, MEDICARE ==
[~2024-03-21] VITALS: Ht 170.2 cm; Wt 75.2 kg
[~2024-03-21 12:37] MED LIST changes: -ASPI81TA52 PO; -ATI1T PO; -ATOR20TA PO; +ATOR20TA66 PO; +CARB1DRO42 OP; -FERR-29 PO; -INSU200I4 SQ; +LORA-269 PO; +METF-900 PO; -MULT-25 PO; +OMEP20CA15 PO; -OMEP40CA21 PO; +QUET50TA PO; -QUET50TA24 PO; +SERT-433 PO; -SERT-434 PO
[2024-03-21 13:03] LABS: BILIRUBIN,URINE MODERATE (Neg); CLARITY,URINE CLOUDY (Clear); COLOR,URINE BROWN (Yellow); GLUCOSE, URINE NEGATIVE (Neg); KETONES,URINE 15 mg/dl (Neg); LEUKOCYTE ESTERASE ,URINE NEGATIVE (Neg); NITRITES, URINE NEGATIVE (Neg); OCCULT BLOOD,URINE LARGE (Neg); PROTEIN,URINE 30 mg/dl (Neg)
[2024-03-21 13:06] LABS: UA COLLECTION TYPE CLN CATCH MIDSTREAM
[2024-03-21 13:11] LABS: BACTERIA,URINE NONE SEEN /HPF (Neg); MUCUS STRANDS NONE SEEN /LPF (Neg); RBC,URINE TNTC /HPF (0-2); SQUAMOUS EPITHELIAL CELL,UR NONE SEEN /LPF (FEW); WBC,URINE 0-4 /HPF (0-4)
[2024-03-21 16:20] LABS: BASOPHILS % (AUTO) 0.2 % (0-1); EOSINOPHILS # (AUTO) 0.2 X10'3 (0-0.9); EOSINOPHILS % (AUTO) 1.8 % (0-6); HEMATOCRIT 43.9 % (42.0-52.0); HEMOGLOBIN 15.1 g/dl (14.0-17.9); LYMPHOCYTES # (AUTO) 0.9 X10'3 (1.1-4.8); LYMPHOCYTES % (AUTO) 9.9 % (21-51); MEAN CORPUSCULAR HEMOGLOBIN 28.9 PG (27.0-31.0); MEAN CORPUSCULAR HGB CONC 34.4 g/dL (33.0-36.5); MONOCYTES # (AUTO) 0.6 X10'3 (0-0.9); MONOCYTES % (AUTO) 6.9 % (2-12); NEUTROPHILS # (AUTO) 7.5 X10'3 (1.8-7.7); NEUTROPHILS % (AUTO) 81.2 % (42-75); PLATELET COUNT 168 X10'3 (140-440); RED BLOOD COUNT 5.23 X10'6 (4.70-6.10); RED CELL DISTRIBUTION WIDTH 15.1 % (11.5-14.5); WHITE BLOOD COUNT 9.2 X10'3 (4.5-11.0)
[2024-03-21 16:26] LABS: ANION GAP 13 (8-16); BLOOD UREA NITROGEN 24 MG/DL (7-18); BUN/CREATININE RATIO 22.2 (10.0-20.0); CALCIUM 9.1 MG/DL (8.5-10.1); CHLORIDE 103 MMOL/L (99-107); CREATININE 1.08 MG/DL (0.60-1.10); GLUCOSE 126 MG/DL (70-104); POTASSIUM 3.4 MMOL/L (3.5-5.1); SODIUM 141 MMOL/L (135-145); TOTAL CARBON DIOXIDE 24.8 MMOL/L (24-32); eCRCL 54 ML/MIN; eGFR 66 ML/MIN
[2024-03-21 16:29] LABS: APTT 25 SECONDS (22-32); INR 1.1 INR; PROTHROMBIN TIME 11.4 SECONDS (9.0-12.0)
[2024-03-21] MEDS ORDERED: iohexol 300mg/ml 100ml inj. ONE (17:24)
[2024-03-21 18:35] VITALS: PULSE 71
[2024-03-21 18:36] VITALS: BP 132/67; RESP 16; TEMP 98.8; O2SAT 93
== END 2024-03-21 18:37 | disposition home or self-care (01) ==
LOC: ER 12:38
DX: N02.9 Recurrent and persistent hematuria with unspecified morphologic changes (principal); I10 Essential (primary) hypertension; E11.9 Type 2 diabetes mellitus without complications; F12.90 Cannabis use, unspecified, uncomplicated; F32.A Depression, unspecified; E78.00 Pure hypercholesterolemia, unspecified; Z91.011 Allergy to milk products; Z88.8 Allergy status to other drugs, medicaments and biological substances
CPT/HCPCS: 36415; 74177; 80048; 81001; 85025; 85610; 85730; 99285; Q9967

== ENCOUNTER 2024-04-01 11:54 | Emergency (ER) | payer BC ==
[~2024-04-01] VITALS: Ht 162.6 cm; Wt 77.3 kg
[2024-04-02 01:43] VITALS: BP 149/80; PULSE 83; RESP 15; TEMP 97.8; O2SAT 96
== END 2024-04-01 15:20 | disposition home or self-care (01) ==
LOC: ER 11:55
DX: F41.9 Anxiety disorder, unspecified (principal); H61.23 Impacted cerumen, bilateral; E78.00 Pure hypercholesterolemia, unspecified; I10 Essential (primary) hypertension; E11.9 Type 2 diabetes mellitus without complications; F12.90 Cannabis use, unspecified, uncomplicated; Z91.018 Allergy to other foods; Z88.8 Allergy status to other drugs, medicaments and biological substances; Z79.899 Other long term (current) drug therapy
CPT/HCPCS: 99281

== ENCOUNTER 2024-05-26 13:03 | Inpatient (IN) | payer OTHER, MEDICARE, BC ==
[~2024-05-26] VITALS: Ht 170.2 cm; Wt 75.0 kg
[2024-05-26] MEDS: OLANZapine **IM** 10 mg inj. IM ONE (13:13)
[2024-05-26] MEDS: diazepam inj 5 MG/ML inj. IM ONE (14:08)
[2024-05-26 14:54] LABS: BASOPHILS % (AUTO) 0.2 % (0-1); EOSINOPHILS % (AUTO) 0.1 % (0-6); HEMATOCRIT 47.7 % (42.0-52.0); HEMOGLOBIN 15.7 g/dl (14.0-17.9); LYMPHOCYTES # (AUTO) 0.4 X10'3 (1.1-4.8); LYMPHOCYTES % (AUTO) 3.5 % (21-51); MEAN CORPUSCULAR HEMOGLOBIN 28.4 PG (27.0-31.0); MEAN CORPUSCULAR HGB CONC 32.9 g/dL (33.0-36.5); MEAN CORPUSCULAR VOLUME 86.3 FL (78-98); MEAN PLATELET VOLUME 9.5 FL (7.4-10.4); MONOCYTES # (AUTO) 0.4 X10'3 (0-0.9); MONOCYTES % (AUTO) 3.1 % (2-12); NEUTROPHILS # (AUTO) 11.6 X10'3 (1.8-7.7); NEUTROPHILS % (AUTO) 93.1 % (42-75); PLATELET COUNT 154 X10'3 (140-440); RED BLOOD COUNT 5.53 X10'6 (4.70-6.10); RED CELL DISTRIBUTION WIDTH 15.2 % (11.5-14.5); WHITE BLOOD COUNT 12.5 X10'3 (4.5-11.0)
[2024-05-26 15:01] LABS: ALBUMIN 4.4 G/DL (3.4-5.0); ANION GAP 26 (8-16); BLOOD UREA NITROGEN 15 MG/DL (7-18); BUN/CREATININE RATIO 11.1 (10.0-20.0); CALCIUM 9.4 MG/DL (8.5-10.1); CHLORIDE 101 MMOL/L (99-107); CREATININE 1.35 MG/DL (0.60-1.10); GLUCOSE 167 MG/DL (70-104); SODIUM 145 MMOL/L (135-145); TOTAL CARBON DIOXIDE 18.4 MMOL/L (24-32); eCRCL 43 ML/MIN; eGFR 51 ML/MIN
[2024-05-26 15:10] LABS: POTASSIUM 2.8 MMOL/L (3.5-5.1)
[2024-05-26] MEDS: levetiracetamNACL 1500mg/100mL 100 ML IV ONE (15:59)
[2024-05-26] MEDS: ringers solution, lacted 1,000 ML IV ONE ×2 (16:00→18:51)
[2024-05-26] MEDS: potassium Cl 20mEq/100mL bag 100 ML IV ONE (16:01)
[2024-05-26 17:38] LABS: BILIRUBIN,URINE NEGATIVE (Neg); CLARITY,URINE CLEAR (Clear); COLOR,URINE YELLOW (Yellow); GLUCOSE, URINE NEGATIVE (Neg); KETONES,URINE 40 mg/dl (Neg); LEUKOCYTE ESTERASE ,URINE NEGATIVE (Neg); NITRITES, URINE NEGATIVE (Neg); OCCULT BLOOD,URINE MODERATE (Neg); PH,URINE 5.5 (4.8-8.0); PROTEIN,URINE TRACE mg/dl (Neg); UROBILINOGEN,URINE 0.2 E.U/dL (0.2-1.0)
[2024-05-26 17:40] LABS: UA COLLECTION TYPE CLN CATCH MIDSTREAM
[2024-05-26 17:44] LABS: BACTERIA,URINE FEW /HPF (Neg); MUCUS STRANDS NONE SEEN /LPF (Neg); SQUAMOUS EPITHELIAL CELL,UR NONE SEEN /LPF (FEW); URIC ACID CRYSTALS 3+ /HPF (NEGATIVE); WBC,URINE NONE SEEN /HPF (0-4)
[2024-05-26] MEDS ORDERED: magnesium hydroxide 30ml (MOM) UD suspension PO PRN (18:05)
[2024-05-26] MEDS ORDERED: mag hydrox/Alum hydrox/simeth 30ml oral suspension PO PRN (18:05)
[2024-05-26] MEDS ORDERED: morphine 2 MG/ML inj. syringe IV PRN (18:05)
[2024-05-26] MEDS ORDERED: magnesium Cl slow-release 64mg tablet PO PRN (18:05)
[2024-05-26] MEDS ORDERED: potassium Cl 40MEQ/1/2NS 520ml 520 ML IV PRN (18:05)
[2024-05-26] MEDS ORDERED: magnesium sulf-water 4G/100mL 100 ML IV PRN (18:05)
[2024-05-26] MEDS ORDERED: potassium Cl 20 mEq SR tablet PO PRN (18:05)
[2024-05-26] MEDS ORDERED: acetaminophen 325mg tablet PO PRN (18:05)
[2024-05-26] MEDS ORDERED: ondansetron/PF 4mg/2ml inj IV PRN (18:05)
[2024-05-26] MEDS ORDERED: magnesium sulf-water 2g/50mL 50 ML IV PRN (18:05)
[2024-05-26 18:37] LABS: URINE AMPHETAMINE SCREEN NEGATIVE (Neg); URINE BARBITUATE SCREEN NEGATIVE (Neg); URINE BENZODIAZEPINES SCREEN NEGATIVE (Neg); URINE CANNABINOID SCREEN POSITIVE (Neg); URINE COCAINE SCREEN NEGATIVE (Neg); URINE METHADONE SCREEN NEGATIVE (Neg); URINE OPIATE SCREEN NEGATIVE (Neg); URINE PHENCYCLIDINE SCREEN NEGATIVE (Neg)
[2024-05-26 19:08] LABS: APTT 22 SECONDS (22-32); INR 1.1 INR; PROTHROMBIN TIME 11.4 SECONDS (9.0-12.0)
[2024-05-26 19:10] LABS: ALANINE AMINOTRANSFERASE 17 U/L (12-78); ALBUMIN 3.6 G/DL (3.4-5.0); ALBUMIN/GLOBULIN RATIO 1.2 (1.1-1.5); ALKALINE PHOSPHATASE 56 IU/L (46-116); ANION GAP 6 (8-16); ASPARTATE AMINO TRANSFERASE 9 U/L (10-37); BILIRUBIN,TOTAL 0.5 MG/DL (0.1-1.0); BLOOD UREA NITROGEN 13 MG/DL (7-18); BUN/CREATININE RATIO 16.9 (10.0-20.0); CALCIUM 8.7 MG/DL (8.5-10.1); CHLORIDE 106 MMOL/L (99-107); CREATININE 0.77 MG/DL (0.60-1.10); GLUCOSE 83 MG/DL (70-104); POTASSIUM 3.6 MMOL/L (3.5-5.1); SODIUM 145 MMOL/L (135-145); TOTAL CARBON DIOXIDE 32.6 MMOL/L (24-32); TOTAL PROTEIN 6.5 G/DL (6.4-8.2); eCRCL 75 ML/MIN; eGFR > 90 ML/MIN
[2024-05-26 19:20] LABS: MAGNESIUM 1.9 MG/DL (1.5-2.4); PRO BRAIN NATRIURETIC PEPTIDE 281 PG/ML (0-450)
[2024-05-26] MEDS: K and/or MAG REPLACEMENT MC SCH (19:21)
[2024-05-26 19:22] LABS: ETHANOL < 10 MG/DL (<10)
[2024-05-26] MEDS: ringers solution, lacted 1,000 ML IV SCH (19:25)
[2024-05-26] MEDS: heparin, porcine 5000 units/ml vial SQ SCH (19:27)
[2024-05-26] MEDS: docusate sod 100mg capsule PO SCH (19:27)
[2024-05-26] MEDS: diphenhydrAMINE 50 mg/ml inj IV ONE (19:51)
[2024-05-26] MEDS: haloperidol lactate 5mg/ml inj IM ONE (19:52)
[2024-05-26] MEDS ORDERED: UNABLE TO OBTAIN (21:32)
[2024-05-26 22:10] VITALS: BP 123/73; PULSE 67; RESP 18; TEMP 98.4; O2SAT 97
[2024-05-26 23:00] VITALS: RESP 18; O2SAT 97
[2024-05-27] VITALS (8 sets, daily range): BP systolic 126–156; BP diastolic 52–75; PULSE 60–68; RESP 16–20; TEMP 97.3–98.9; O2SAT 96–98
[2024-05-27] MEDS: levetiracetam-NACL1000mg/100ml 100 ML IV SCH (03:19)
[2024-05-27 06:31] LABS: BASOPHILS % (AUTO) 0.3 % (0-1); EOSINOPHILS % (AUTO) 0.5 % (0-6); HEMATOCRIT 42.4 % (42.0-52.0); HEMOGLOBIN 14.3 g/dl (14.0-17.9); LYMPHOCYTES # (AUTO) 0.8 X10'3 (1.1-4.8); LYMPHOCYTES % (AUTO) 10.8 % (21-51); MEAN CORPUSCULAR HEMOGLOBIN 28.6 PG (27.0-31.0); MEAN CORPUSCULAR HGB CONC 33.7 g/dL (33.0-36.5); MEAN CORPUSCULAR VOLUME 84.8 FL (78-98); MEAN PLATELET VOLUME 9.2 FL (7.4-10.4); MONOCYTES # (AUTO) 0.7 X10'3 (0-0.9); MONOCYTES % (AUTO) 9.1 % (2-12); NEUTROPHILS # (AUTO) 5.9 X10'3 (1.8-7.7); NEUTROPHILS % (AUTO) 79.3 % (42-75); PLATELET COUNT 144 X10'3 (140-440); RED CELL DISTRIBUTION WIDTH 15.2 % (11.5-14.5); WHITE BLOOD COUNT 7.5 X10'3 (4.5-11.0)
[2024-05-27 06:49] LABS: INR 1.1 INR; PROTHROMBIN TIME 11.7 SECONDS (9.0-12.0)
[2024-05-27 06:54] LABS: APTT 26 SECONDS (22-32)
[2024-05-27 06:57] LABS: HEMOGLOBIN A1C 5.8 % (4.5-6.2)
[2024-05-27 07:29] LABS: ALANINE AMINOTRANSFERASE 17 U/L (12-78); ALBUMIN 3.5 G/DL (3.4-5.0); ALBUMIN/GLOBULIN RATIO 1.1 (1.1-1.5); ALKALINE PHOSPHATASE 55 IU/L (46-116); ANION GAP 10 (8-16); ASPARTATE AMINO TRANSFERASE 15 U/L (10-37); BILIRUBIN,TOTAL 0.7 MG/DL (0.1-1.0); BLOOD UREA NITROGEN 10 MG/DL (7-18); BUN/CREATININE RATIO 13.7 (10.0-20.0); CALCIUM 8.6 MG/DL (8.5-10.1); CHLORIDE 106 MMOL/L (99-107); CHOL/HDL RATIO 2.1 (0.00-4.99); CHOLESTEROL 106 MG/DL (0-200); CREATININE 0.73 MG/DL (0.60-1.10); GLUCOSE 91 MG/DL (70-104); HDL CHOLESTEROL 51 MG/DL (35-60); LDL CHOLESTEROL 39 MG/DL (50-100); MAGNESIUM 1.9 MG/DL (1.5-2.4); PHOSPHORUS 3.4 MG/DL (2.3-4.5); SODIUM 146 MMOL/L (135-145); THYROID STIMULATING HORMONE 0.75 ulU/ml (0.34-4.50); TOTAL CARBON DIOXIDE 29.6 MMOL/L (24-32); TOTAL PROTEIN 6.6 G/DL (6.4-8.2); TRIGLYCERIDES 72 MG/DL (20-135); eCRCL 79 ML/MIN; eGFR > 90 ML/MIN
[2024-05-27 07:42] LABS: POTASSIUM 2.8 MMOL/L (3.5-5.1)
[2024-05-27] MEDS: potassium Cl 20 mEq SR tablet PO PRN (07:57)
[2024-05-27] MEDS: VANCOMYCIN 1.75GM/WATER FOR INJ (PEG) 350 ML IVPB IV ONE (11:00)
[2024-05-27] MEDS ORDERED: CARBOXYMETHYLCELLULOSE SODIUM EACHEYE PRN (12:15)
[2024-05-27] MEDS ORDERED: LORazepam 0.5 MG tablet PO PRN (12:15)
[2024-05-27] MEDS: LACOSAMIDE 200mg/20ml inj. 100 MG in normal saline 100ml IV soln 100 ML IV SCH (15:00)
[2024-05-27] MEDS: QUEtiapine 25mg tablet PO SCH (20:46)
[2024-05-27] MEDS: vancomycin/NS 1 GM ADD-VANTAGE 250 ML IV SCH (23:47)
[2024-05-28] VITALS (8 sets, daily range): BP systolic 123–135; BP diastolic 66–87; PULSE 58–66; RESP 15–20; TEMP 97.2–98.2; O2SAT 96–98
[2024-05-28 06:44] LABS: BASOPHILS % (AUTO) 0.7 % (0-1); EOSINOPHILS # (AUTO) 0.2 X10'3 (0-0.9); EOSINOPHILS % (AUTO) 3.9 % (0-6); HEMATOCRIT 41.1 % (42.0-52.0); HEMOGLOBIN 13.7 g/dl (14.0-17.9); LYMPHOCYTES # (AUTO) 0.9 X10'3 (1.1-4.8); LYMPHOCYTES % (AUTO) 16.8 % (21-51); MEAN CORPUSCULAR HEMOGLOBIN 28.6 PG (27.0-31.0); MEAN CORPUSCULAR HGB CONC 33.3 g/dL (33.0-36.5); MEAN CORPUSCULAR VOLUME 85.9 FL (78-98); MEAN PLATELET VOLUME 9.2 FL (7.4-10.4); MONOCYTES # (AUTO) 0.5 X10'3 (0-0.9); MONOCYTES % (AUTO) 10.1 % (2-12); NEUTROPHILS # (AUTO) 3.7 X10'3 (1.8-7.7); NEUTROPHILS % (AUTO) 68.5 % (42-75); PLATELET COUNT 137 X10'3 (140-440); RED BLOOD COUNT 4.79 X10'6 (4.70-6.10); RED CELL DISTRIBUTION WIDTH 15.1 % (11.5-14.5); WHITE BLOOD COUNT 5.4 X10'3 (4.5-11.0)
[2024-05-28 06:54] LABS: APTT 26 SECONDS (22-32); INR 1.1 INR; PROTHROMBIN TIME 11.8 SECONDS (9.0-12.0)
[2024-05-28 06:57] LABS: ALANINE AMINOTRANSFERASE 18 U/L (12-78); ALBUMIN 3.3 G/DL (3.4-5.0); ALBUMIN/GLOBULIN RATIO 1.2 (1.1-1.5); ALKALINE PHOSPHATASE 49 IU/L (46-116); ANION GAP 6 (8-16); ASPARTATE AMINO TRANSFERASE 14 U/L (10-37); BILIRUBIN,TOTAL 0.6 MG/DL (0.1-1.0); BLOOD UREA NITROGEN 9 MG/DL (7-18); BUN/CREATININE RATIO 13.4 (10.0-20.0); CALCIUM 8.3 MG/DL (8.5-10.1); CHLORIDE 111 MMOL/L (99-107); CREATININE 0.67 MG/DL (0.60-1.10); GLUCOSE 116 MG/DL (70-104); MAGNESIUM 1.7 MG/DL (1.5-2.4); PHOSPHORUS 3.2 MG/DL (2.3-4.5); POTASSIUM 3.5 MMOL/L (3.5-5.1); SODIUM 147 MMOL/L (135-145); TOTAL CARBON DIOXIDE 30.4 MMOL/L (24-32); TOTAL PROTEIN 6.1 G/DL (6.4-8.2); eCRCL 86 ML/MIN; eGFR > 90 ML/MIN
[2024-05-28] MEDS: pantoprazole 40mg Tablet.DR PO SCH (07:48)
[2024-05-28] MEDS: tamsulosin 0.4mg capsule PO SCH (07:48)
[2024-05-28] MEDS: lisinopril 20mg tablet PO SCH (07:49)
[2024-05-28] MEDS: amLODIPine 5mg tablet PO SCH (07:49)
[2024-05-28] MEDS: atorvastatin 20mg tablet PO SCH (07:49)
[2024-05-28] MEDS: HYDROchlorothiazide 25mg tablet PO SCH (07:50)
[2024-05-28] MEDS: sertraline 50mg tablet PO SCH (07:50)
[2024-05-28] MEDS: ringers solution, lacted 1,000 ML IV SCH (08:30)
[2024-05-28] MEDS: aspirin 81mg, enteric-coated 1 TAB TABLET.DR PO SCH (13:16)
[2024-05-28] MEDS ORDERED: GADOTERATE MEGLUMINE 7.5 MMOL/15 ML VIAL IV ONE (20:09)
[2024-05-28] MEDS: VANCOMYCIN LEVEL IV ONE (22:30)
[2024-05-29 02:00] VITALS: BP 110/66; PULSE 60; RESP 15; TEMP 97.3; O2SAT 97
[2024-05-29 07:00] VITALS: BP 166/80; PULSE 60; RESP 16; TEMP 97.2; O2SAT 98
[2024-05-29 07:42] LABS: EOSINOPHILS # (AUTO) 0.2 X10'3 (0-0.9); EOSINOPHILS % (AUTO) 4.4 % (0-6); HEMATOCRIT 43.3 % (42.0-52.0); HEMOGLOBIN 14.4 g/dl (14.0-17.9); LYMPHOCYTES # (AUTO) 0.7 X10'3 (1.1-4.8); LYMPHOCYTES % (AUTO) 14.9 % (21-51); MEAN CORPUSCULAR HEMOGLOBIN 28.4 PG (27.0-31.0); MEAN CORPUSCULAR HGB CONC 33.2 g/dL (33.0-36.5); MEAN CORPUSCULAR VOLUME 85.5 FL (78-98); MEAN PLATELET VOLUME 9.4 FL (7.4-10.4); MONOCYTES # (AUTO) 0.4 X10'3 (0-0.9); NEUTROPHILS # (AUTO) 3.5 X10'3 (1.8-7.7); NEUTROPHILS % (AUTO) 70.7 % (42-75); PLATELET COUNT 131 X10'3 (140-440); RED BLOOD COUNT 5.06 X10'6 (4.70-6.10); WHITE BLOOD COUNT 4.9 X10'3 (4.5-11.0)
[2024-05-29 07:55] LABS: APTT 25 SECONDS (22-32); INR 1.1 INR; PROTHROMBIN TIME 11.4 SECONDS (9.0-12.0)
[2024-05-29 08:00] VITALS: RESP 20; O2SAT 97
[2024-05-29 08:20] LABS: ALANINE AMINOTRANSFERASE 16 U/L (12-78); ALBUMIN 3.2 G/DL (3.4-5.0); ALKALINE PHOSPHATASE 55 IU/L (46-116); ANION GAP 9 (8-16); ASPARTATE AMINO TRANSFERASE 18 U/L (10-37); BILIRUBIN,TOTAL 0.6 MG/DL (0.1-1.0); BLOOD UREA NITROGEN 10 MG/DL (7-18); BUN/CREATININE RATIO 13.7 (10.0-20.0); CALCIUM 8.6 MG/DL (8.5-10.1); CHLORIDE 109 MMOL/L (99-107); CREATININE 0.73 MG/DL (0.60-1.10); GLUCOSE 131 MG/DL (70-104); MAGNESIUM 1.7 MG/DL (1.5-2.4); PHOSPHORUS 4.1 MG/DL (2.3-4.5); POTASSIUM 3.1 MMOL/L (3.5-5.1); SODIUM 145 MMOL/L (135-145); TOTAL CARBON DIOXIDE 27.1 MMOL/L (24-32); TOTAL PROTEIN 6.4 G/DL (6.4-8.2); eCRCL 79 ML/MIN; eGFR > 90 ML/MIN
[2024-05-29 11:00] VITALS: BP 152/70; PULSE 65; RESP 14; TEMP 97.3; O2SAT 97
[2024-05-29] MEDS ORDERED: LACO100T2 PO ×2 (11:02→12:20)
[2024-05-29] MEDS ORDERED: ASPI-1071 PO (11:02)
[2024-06-03] MEDS ORDERED: LACO100T2 PO (14:21)
== END 2024-05-29 13:07 | disposition home health service (06) | DRG 101 ==
LOC: ER 13:03 → ED HOLD 17:43 → PCU 3S 22:05
PROVIDERS: ADMIT Family Medicine; ATTEND Family Medicine
PROC: 4A00X4Z Measurement of Central Nervous Electrical Activity, External Approach (ICD-10-PCS; principal; 2024-05-27)
DX: G40.409 Other generalized epilepsy and epileptic syndromes, not intractable, without status epilepticus (principal); N17.9 Acute kidney failure, unspecified; E87.20 Acidosis, unspecified; E78.00 Pure hypercholesterolemia, unspecified; E11.9 Type 2 diabetes mellitus without complications; I10 Essential (primary) hypertension; F32.A Depression, unspecified; E87.6 Hypokalemia; Z91.014 Allergy to mammalian meats; Z91.018 Allergy to other foods; Z79.899 Other long term (current) drug therapy
CPT/HCPCS: 36415; 70450; 70553; 71045; 80048; 80053; 80061; 80202; 80305; 80320; 81001; 82948; 83036; 83605; 83735; 83880; 84100; 84145; 84443; 84484; 85025; 85610; 85730; 87040; 87077; 87081; 87186; 93005; 93308; 95816; 96361; 96365; 96372; 96375; 97116; 97161; 97530; 99291; A4615; A6590; C1758; C9254; G0378; J1200; J1630; J1644; J1953; J3360; J3370; J3372; J3480; J3490; J7030; J7120

== ENCOUNTER 2025-01-12 09:07 | Emergency (ER) | payer OTHER, MEDICARE, BC ==
[~2025-01-12] VITALS: Ht 167.6 cm; Wt 54.5 kg
[~2025-01-12 09:07] MED LIST changes: +ASPI-1071 PO; -FLO0.4C PO; +LACO100T2 PO; +TAMS-55 PO
--- NOTE | 2025-01-12 09:20 | Physician Documentation ---
History of Present Illness ~ Stated Complaint: 5150 Time Seen by MD: 09:12 Primary Medical Doctor: No local MD HPI 79-year-old has been in contact with [place] police Department multiple times over the last day. He was reported to be walking out in traffic asking ca r to kill him. Patient reports to have seen too much and wants to . When [employer] contacted the patient this morning at his house he stated that he wanted to denies so he can kill himself. Patient is uncooperative with the interview rambling speech and pressured. Speaking paranoid statements. Medication Reconciliation Allergies: Coded Allergies: Beef Containing Products (Unverified Allergy, Mild, 01/08/17) lactase (Verified Allergy, Mild, 01/08/17) lactose (Verified Allergy, Unknown, 09/30/19) Scheduled Amlodipine Besylate (Amlodipine Besylate), 1 TABLET PO DAILY, (Reported) Aspirin (Ecotrin*), 1 TAB PO DAILY Atorvastatin Calcium (Atorvastatin Calcium), 1 TAB PO DAILY, (Reported) Lacosamide (Vimpat), 1 TAB PO Q12H Lacosamide (Vimpat), 1 TAB PO Q12H Lisinopril/Hydrochlorothiazide (Lisinopril-Hctz 20-25 mg Tab), 1 TAB PO DAILY, (Reported) Metformin Hcl* (Metformin ER*), 1 TAB PO DAILY, (Reported) Omeprazole (Omeprazole), 2 CAP PO DAILY, (Reported) Quetiapine Fumarate (Seroquel), 1 TAB PO HS, (Reported) Sertraline HCl (Sertraline HCl), 1 TAB PO DAILY, (Reported) Tamsulosin Hcl* (Flomax*), 1 CAP PO DAILY, (Reported) Scheduled PRN Carboxymethylcellulose Sodium (Thera Tears), 1 DROP OP BID PRN for dry eyes, (R eported) Lorazepam (Ativan), 0.5 TAB PO DAILY PRN for anxiety, (Reported) Past Medical History Past Medical History: High Cholesterol, Hypertension, Diverticulitis, Diabetes, Depression Past Surgical History: no surgical history Patient History: Patient reports no known family medical history. Alcohol Use: Occasionally Drug Use: marijuana Lives with: Alone Lives In: Home Review of Systems All Other Systems at this time: Reviewed and Negative ROS As stated above in the HPI, otherwise all systems are reviewed and negative. Physical Exam Physical Exam General: uncooperative Respiratory: Lungs clear, no respiratory distress. Cardiovascular: Regular rate and rhythm, no murmurs. Gastrointestinal: Soft, nontender, nondistended. Bowels sounds present. . Neurologic: Oriented x4. Psychiatric: agitated, pressured speech, confused Skin: Normal color, warm and dry. No edema, no ecchymosis. Progress Progress Note After patient was not sedated he slept for several hours here in the ED. After he awoke he use the restroom and was showing dramatically different behavior. He is affable good historian and was interested in talking about his experience in the [place] war. Provided him with a meal tray which he appreciated Results/Orders Results/Orders Orders - PHILIPP MARIE NP Med Rec (01/12/25 09:21) Covid19 Binax Poc Result Entry (01/12/25 09:21) Substance Use Navigator (01/12/25 09:21) Behavioral Restraints (01/12/25 ) Regular Diet (01/12/25 Lunch) Close Observation Level (01/12/25 10:58) Completed Orders - PHILIPP MARIE NP Haloperidol Lact. (Haldol) (01/12/25 09:15) Diazepam Inj (Valium Inj) (01/12/25 09:15) Diphenhydramine Inj (Benadryl Inj.) (01/12/25 09:15) Cbc/Diff (01/12/25 09:21) Drug Screen, Urine (01/12/25 09:21) Ethanol (01/12/25 09:21) TSH (01/12/25 09:21) BMP (01/12/25 09:21) Ua With Microscopic (01/12/25 14:51) Medications Received in ER Medications (Trade) Dose Ordered Sig/Gemma Route PRN Reason Start Time Stop Time Status Last Admin Dose Admin (Haldol) 5 mg ONCE ONCE IM 01/12/25 09:15 01/12/25 09:16 DC 01/12/25 09:31 5 MG (Valium inj) 5 mg ONCE ONCE IV 01/12/25 09:15 01/12/25 09:17 DC 01/12/25 09:31 5 MG (Benadryl inj.) 25 mg ONCE ONCE IM 01/12/25 09:15 01/12/25 09:16 DC 01/12/25 09:31 25 MG Vital Signs 01/12/25 01/12/25 01/12/25 01/12/25 09:13 09:31 10:30 10:33 Pulse 63 Resp 24 22 20 16 B/P (MAP) 96/57 (70) Pulse Ox 96 O2 Flow Rate 0 0 01/12/25 10:50 Resp 14 Laboratory Tests Test 01/12/25 09:50 01/12/25 10:00 01/12/25 14:51 White Blood Count 9.4 Red Blood Count 5.63 Hemoglobin 16.2 Hematocrit 47.4 Mean Corpuscular Volume 84.3 Mean Corpuscular Hemoglobin 28.8 Mean Corpuscular Hemoglobin Concent 34.2 Red Cell Distribution Width 14.6 H Platelet Count 173 Mean Platelet Volume 10.0 Neutrophils (%) (Auto) 78.3 H Lymphocytes (%) (Auto) 11.4 L Monocytes (%) (Auto) 8.0 Eosinophils (%) (Auto) 1.8 Basophils (%) (Auto) 0.5 Neutrophils # (Auto) 7.4 Lymphocytes # (Auto) 1.1 Monocytes # (Auto) 0.8 Eosinophils # (Auto) 0.2 Basophils # (Auto) 0.0 CBC Comment Sodium Level 143 Potassium Level 3.4 L Chloride Level 102 Carbon Dioxide Level 21.3 L Anion Gap 20 H Blood Urea Nitrogen 16 Creatinine 1.23 H Estimated GFR/1.73 m2 57 BUN/Creatinine Ratio 13.0 Glucose Level 148 H Calcium Level 9.6 Albumin 4.4 Thyroid Stimulating Hormone (TSH) 1.21 Chemistry Comments Ethyl Alcohol Level < 10 SARS-CoV-2 Antigen (Rapid) Negative Urine Specimen Description Urinal Urine Color Maria Urine Clarity Clear Urine pH 6.0 Urine Specific [place] 1.020 Urine Protein Trace Urine Glucose (UA) Negative Urine Ketones 15 H Urine Occult Blood Negative Urine Nitrite Negative Urine Bilirubin Moderate Urine Urobilinogen 0.2 Urine Leukocyte Esterase Negative Urine RBC 0-2 Urine WBC 0-4 Urine Squamous Epithelial Cells Few Urine Transitional Epithelial Cells Few Urine Calcium Oxalate Crystals 1+ Urine Bacteria None seen Urine Mucus Few Volume Urine Centrifuged 10 ml Urine Comment Urine Opiates Screen Negative Urine Methadone Screen Negative Urine Fentanyl Screen Negative Urine Barbiturates Screen Negative Urine Phencyclidine Screen Negative Urine Amphetamines Screen Negative Urine Benzodiazepines Screen Positive Urine Cocaine Screen Negative Urine Cannabinoids Screen Positive Drug Screen Comment Medical Decision Making Additional information obtaine: N/A Findings Patient was sedated and now sleeping undisturbed. Labs are overall reassuring however there are some signs of mild to moderate dehydration which can be replenished orally. This time I am going to medically clear him for evaluation by [facility] Differential Dx:Considerations: Include: Alcohol abuse, Anxiety, Bipolar disorder, Conversion disorder, Depression, Encephaloathy, Homicidal, Panic disorder, Personality disorder, Schizophrenia, Substance abuse, Suicidal, Other Departure Disposition: 01 HOME / SELF CARE / HOMELESS Impression: Primary Impression: Depression Additional Impression: Schizoaffective disorder Additional Instructions: Transfer orders for [facility]: At this time there is no evidence of an emergent medical condition that would preclude (admission/transfer) to a psychiatric unit via [facility] protocol for further psychiatric, as well as medical evaluation and treatment. At this time I have no reason to believe that transfer via [facility] protocol would have serious medical compromise in the patient's health. Referrals: NO PRIMARY CARE PROVIDER (PCP) Signature Scribe Signature: [email or web address] Attestation: Scribed for Philipp Marie Public Services Assistant by Philipp Simon NP . 01/12/25 09:20 PHILIPP MARIE NP Jan 12, 2025 09:20
[2025-01-12] MEDS: diazepam inj 5 MG/ML inj. IV ONE (09:31)
[2025-01-12] MEDS: haloperidol lactate 5mg/ml inj IM ONE (09:31)
[2025-01-12 10:11] LABS: MEAN PLATELET VOLUME 10.0 FL (7.4-10.4); RED CELL DISTRIBUTION WIDTH 14.6 % (11.5-14.5)
[2025-01-12 10:27] LABS: CREATININE 1.23 MG/DL (0.60-1.10); TOTAL CARBON DIOXIDE 21.3 MMOL/L (24-32); eCRCL 38 ML/MIN; eGFR 57 ML/MIN
[2025-01-12 10:35] LABS: ETHANOL < 10 MG/DL (<10)
[2025-01-12 15:11] LABS: LEUKOCYTE ESTERASE ,URINE NEGATIVE (Neg); NITRITES, URINE NEGATIVE (Neg); OCCULT BLOOD,URINE NEGATIVE (Neg)
[2025-01-12 15:22] LABS: UA COLLECTION TYPE URINAL
[2025-01-12 15:23] LABS: CAL OXALATE CRYSTALS 1+ /HPF (NEGATIVE); MUCUS STRANDS FEW /LPF (Neg)
[2025-01-12 15:24] LABS: SQUAMOUS EPITHELIAL CELL,UR FEW /LPF (FEW)
[2025-01-12 15:38] LABS: URINE AMPHETAMINE SCREEN NEGATIVE (Neg); URINE BARBITUATE SCREEN NEGATIVE (Neg); URINE BENZODIAZEPINES SCREEN POSITIVE (Neg); URINE CANNABINOID SCREEN POSITIVE (Neg); URINE COCAINE SCREEN NEGATIVE (Neg); URINE METHADONE SCREEN NEGATIVE (Neg); URINE OPIATE SCREEN NEGATIVE (Neg); URINE PHENCYCLIDINE SCREEN NEGATIVE (Neg)
[2025-01-13 05:20] VITALS: PULSE 68
--- NOTE | 2025-01-13 09:48 | RADIOLOGY REPORT ---
FRONTAL CHEST AND right RIB RADIOGRAPHS HISTORY: rib pain rt. TECHNIQUE: Multiple views of the right ribs with frontal view of the chest. COMPARISON: None. FINDINGS: The trachea is midline. The cardiac silhouette and mediastinum are within normal limits. No pneumothorax, pleural effusions, or consolidations. There is no evidence of an acute fracture, dislocation, blastic, or lytic lesions. Impression: 1. No evidence of acute rib fracture. 2. No acute cardiopulmonary disease.
[2025-01-13] MEDS: ibuprofen tablet 400 MG TABLET PO ONE (10:45)
[2025-01-13 11:01] VITALS: BP 116/62; RESP 16; TEMP 98.6; O2SAT 96
== END 2025-01-13 11:04 | disposition home or self-care (01) ==
LOC: ER 09:07
DX: F32.A Depression, unspecified (principal); F25.9 Schizoaffective disorder, unspecified; E11.9 Type 2 diabetes mellitus without complications; E78.00 Pure hypercholesterolemia, unspecified; F12.90 Cannabis use, unspecified, uncomplicated; I10 Essential (primary) hypertension; Z88.8 Allergy status to other drugs, medicaments and biological substances; Z91.014 Allergy to mammalian meats; Z79.82 Long term (current) use of aspirin; Z79.899 Other long term (current) drug therapy; Z72.89 Other problems related to lifestyle; Z60.2 Problems related to living alone; Z20.822 Contact with and (suspected) exposure to COVID-19
CPT/HCPCS: 36415; 71100; 80048; 80305; 80320; 81001; 84443; 85025; 87811; 96372; 96374; 99285; J1200; J1630; J3360